=== PATIENT | male | born 1990 | race African-American/Black ===

== ENCOUNTER 2017-05-03 05:02 | Emergency (ER) | payer BC ==
[2017-05-03] MEDS ORDERED: BUPIVACAINE HCL 0.75% INJ/PF (7.5 MG/1 ML) 10 ML SDV INJ ONE (05:38)
[2017-05-03] MEDS ORDERED: PENICILLIN V POTASSIUM 500 MG TABLET PO ONE (05:38)
[2017-05-03] MEDS ORDERED: LIDOCAINE 1% INJ (10 MG/ML) 10 ML MDV INJ ONE ×2 (05:38→05:47)
--- NOTE | 2017-05-03 05:39 | ER Document Report ---
HPI - HPI Patient complains to provider of: right jaw pain, dental pain Pain Level: 5 Context: Patient is a 27-year-old male comes emergency department for chief complaint of dental pain. He states that he has had pain intermittently for over a week, states it became much worse today and now he cannot stand it. He states he has been applying topical lidocaine that he was given 1 week ago here. He is not taking any antibiotics. He denies sore throat, fever, neck pain. Past Medical History - General Information source: Patient - Social History Smoking Status: Current Every Day Smoker Drug Abuse: None Lives with: Family Family History: None Patient has suicidal ideation: No Patient has homicidal ideation: No - Medical History Medical History: Negative Renal/ Medical History: Denies: Hx Peritoneal Dialysis Surgical Hx: Negative - Immunizations Immunizations up to date: Yes Hx Diphtheria, Pertussis, Tetanus Vaccination: Yes Vertical Provider Document - CONSTITUTIONAL General Appearance: Mild Distress - Patient does appear to be in some pain, holding his right hand to his right jaw, Thin - INFECTION CONTROL TRAVEL OUTSIDE OF THE [place] IN LAST 30 DAYS: No - HEENT HEENT: Atraumatic, Normocephalic Mouth Diagram: 1 - Dental caries with no surrounding erythema or swelling 2 - Dental caries with no surrounding erythema or swelling - NECK Neck: Normal Inspection - RESPIRATORY Respiratory: Breath Sounds Normal, No Respiratory Distress O2 Sat by Pulse Oximetry: 99 - CARDIOVASCULAR Cardiovascular: Regular Rate, Regular Rhythm - GI/ABDOMEN Gastrointestinal: Abdomen Soft, Abdomen Non-Tender - BACK Back: Normal Inspection - MUSCULOSKELETAL/EXTREMETIES Musculoskeletal/Extremeties: MAEW, FROM, Non-Tender - NEURO Level of Consciousness: Awake, Alert, Appropriate - DERM Integumentary: Warm, Dry, No Rash Course - Re-evaluation Re-evalutation: Patient with examination consistent with dental caries suggesting dental infection. No abscess evidence. No lymphadenopathy, no swelling or tenderness indicating Roger's angina. Patient never took his antibiotics last time. Discussed dental block with patient, this was performed, patient had excellent anesthesia of the lower jaw but he also has some pain in separate teeth on the right upper jaw from dental caries as well. Discussed necessity of following up , patient states he will, discussed return precautions, patient states understanding and agreement. - Vital Signs Vital signs: Temp Pulse Resp BP Pulse Ox 97.5 F 77 18 110/59 L 99 05/03/17 05:07 05/03/17 05:07 05/03/17 05:07 05/03/17 05:07 05/03/17 05:07 Discharge - Discharge Clinical Impression: Pain, dental Condition: Stable Disposition: HOME, SELF-CARE Additional Instructions: Exam indicates dental infection, please take the penicillin antibiotics as prescribed to completion. Follow-up closely with the dentist to prevent this from happening again. Return if he develop any concerning or worsening symptoms including swelling of the face. Prescriptions: Penicillin V Potassium [Penicillin Vk 500 mg Tablet] 500 mg PO BID #20 tablet Referrals: [facility] [Provider Group] - Follow up tomorrow
[2017-05-03] MEDS ORDERED: LIDOCAINE 1% INJ-PF (10 MG/ML) 30 ML SDV ONE (05:45)
[2017-05-03] MEDS ORDERED: HYDROCODONE/ACETAMINOPHEN 5-325 MG (6 TAB/ER DISP) PO PRN (06:11)
[2017-05-03 06:50] VITALS: BP 135/76
== END 2017-05-03 06:46 | disposition home or self-care (01) ==
LOC: ER 05:02
PROC: 3E0T3BZ Introduction of Anesthetic Agent into Peripheral Nerves and Plexi, Percutaneous Approach (ICD-10-PCS; principal; 2017-05-03)
DX: K08.9 Disorder of teeth and supporting structures, unspecified (principal); R68.84 Jaw pain; F17.200 Nicotine dependence, unspecified, uncomplicated
CPT/HCPCS: 99282; 64400; J3490

== ENCOUNTER 2017-06-06 13:43 | Emergency (ER) | payer BC ==
--- NOTE | 2017-06-06 14:20 | ER Document Report ---
ED Eye Complaint - General Chief Complaint: Drainage from Eye Stated Complaint: EYE PAIN Time Seen by Provider: 06/06/17 14:07 Mode of Arrival: Ambulatory Information source: Patient Notes: Patient is a 27-year-old black male comes emergency room complaining of right eye blurriness. Patient states this started yesterday. He denies any known trauma. He works as a cook at [employer]. Woke up this morning with the eye crusted over and draining. Also feels like there is a foreign body in the eye is itchy and uncomfortable and painful. Denies any other medical problems TRAVEL OUTSIDE OF THE [place] IN LAST 30 DAYS: No - HPI Patient complains to provider of: Blurry eye right side Onset: Yesterday Eye location: Right Injury: No Occurred at: Other - Unknown Quality of pain: Achy, Other - Itchy Severity: Mild Pain Level: 2 Exposure: No: Alkaline chemical, Acidic chemical, Unknown chemical, Direct trauma, Projectile, Broken glass, Conjunctivitis, Welding arc, Tanning carroll, Other Safety glasses worn: No Contact lenses worn: No Associated symptoms: Burning, Itching, Pain, Redness, Eyelid swelling - Related Data Allergies/Adverse Reactions: No Known Allergies Allergy (Verified 06/06/17 13:45) Past Medical History - General Information source: Patient - Social History Smoking Status: Current Every Day Smoker Cigarette use (# per day): No - 1. Guard a Chew tobacco use (# tins/day): No Smoking Education Provided: Yes Frequency of alcohol use: Rare Drug Abuse: None Occupation: Cook Lives with: Family Family History: None, Reviewed & Not Pertinent Renal/ Medical History: Denies: Hx Peritoneal Dialysis - Immunizations Immunizations up to date: Yes Hx Diphtheria, Pertussis, Tetanus Vaccination: Yes Review of Systems - Review of Systems Constitutional: No symptoms reported EENT: See HPI, Eye pain, Eye discharge Cardiovascular: No symptoms reported Respiratory: No symptoms reported Gastrointestinal: No symptoms reported Genitourinary: No symptoms reported Male Genitourinary: No symptoms reported Musculoskeletal: No symptoms reported Skin: No symptoms reported Hematologic/Lymphatic: No symptoms reported Neurological/Psychological: No symptoms reported -: Yes All other systems reviewed and negative Physical Exam - Vital signs Vitals: Temp Pulse Resp BP Pulse Ox 97.8 F 62 14 128/81 H 100 06/06/17 13:48 06/06/17 13:48 06/06/17 13:48 06/06/17 13:48 06/06/17 13:48 Interpretation: Normal - General General appearance: Alert, Other - Appears uncomfortable In distress: Mild - HEENT Head: Normocephalic Eyes: Pale conjunctiva Conjunctiva: Injected Cornea: Normal Extraocular movements intact: Yes Eyelashes: Normal, Other - Further inspection of patient's right eye with the lower lid pulled down there is a noticeable stye or meobian enlargement which appears very erythematous angry red. Pupils: PERRL Visual acuity- Right eye: 20/40 Visual acuity- Left eye: 20/20 Visual acuity- Both eyes: 20/20 Lids everted for exam: right: Stye Anterior chamber: Normal Ears: Normal Tympanic membrane: Normal Mucous membranes: Moist Pharynx: Normal Neck: Normal - Respiratory Respiratory status: No respiratory distress Chest status: Nontender Breath sounds: Normal Chest palpation: Normal - Cardiovascular Rhythm: Regular Heart sounds: Normal auscultation Murmur: No - Neurological Neuro grossly intact: Yes Cognition: Normal Orientation: AAOx4 Andie Coma Scale Eye Opening: Spontaneous Andie Coma Scale Verbal: Oriented [place] Coma Scale Motor: Obeys Commands Andie Coma Scale Total: 15 Speech: Normal Course - Vital Signs Vital signs: Temp Pulse Resp BP Pulse Ox 97.8 F 62 14 128/81 H 100 06/06/17 13:48 06/06/17 13:48 06/06/17 13:48 06/06/17 13:48 06/06/17 13:48 - Transfer of Care Notes: 06/06/17 14:48 At this time it was not necessary to do a fluorescein stain on patient because of his discomfort is a stye in the lower lid. He is somewhat injected from rubbing the eye. His visual acuity is just a bit off but he has never had his eyes checked. Given the low incidence of any probable foreign bodies which she did not remember an incidence of we will go ahead and treat him with antibiotic drops and have him follow-up with ophthalmology. Discharge - Discharge Clinical Impression: Stye Qualifiers: Laterality: right Eyelid: lower Qualified Code(s): H00.012 - Hordeolum externum right lower eyelid Condition: Good Disposition: HOME, SELF-CARE Instructions: Eyedrop Use ([facility]), Conjunctivitis ([facility]) Additional Instructions: You have a stye in your right eye lower lid. Is very erythematous and appears to be somewhat larger than usual. We are placing you on antibiotic drops that has a steroid-based to it only use these no more than 7 days 1 drop every 4 hours. Also use warm moist compresses a washrag as warm placed across the eye several times a day. I am giving you the name of the electrical equipment assembler supervisor irrigation today if it continues to bother her after 24 hours highly recommend contacting the electrical equipment assembler for appointment. Should you have any concerns or problems or increasing pain or discomfort return to ER for recheck. Prescriptions: Tobramycin Sulf/Dexamethasone [Tobradex Eye Drops] 5 ml OP Q4 #1 drops.susp Forms: Return to Work Referrals: AMELIA ANTONIO, DO [ACTIVE STAFF] - Follow up as needed
[2017-06-06 15:18] VITALS: BP 121/72
== END 2017-06-06 15:14 | disposition home or self-care (01) ==
LOC: ER 13:43
DX: H00.012 Hordeolum externum right lower eyelid (principal); F17.200 Nicotine dependence, unspecified, uncomplicated; Z71.6 Tobacco abuse counseling
CPT/HCPCS: 99282

== ENCOUNTER 2017-12-13 16:42 | Emergency (ER) | payer SELFPAY ==
--- NOTE | 2017-12-13 16:52 | ER Document Report ---
HPI - HPI Patient complains to provider of: Wasp sting left hand Onset: This morning Pain Level: 3 Context: 27-year-old male was stung on his left hand by a wasp this morning. He worked all day. 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 It itches. Associated Symptoms: None Exacerbated by: Denies Relieved by: Denies Similar symptoms previously: No Recently seen / treated by doctor: No - ROS ROS below otherwise negative: Yes Systems Reviewed and Negative: Yes All other systems reviewed and negative - REPRODUCTIVE Reproductive: DENIES: : Past Medical History - General Information source: Patient - Social History Smoking Status: Unknown if Ever Smoked Frequency of alcohol use: None Drug Abuse: None Occupation: service agent Lives with: Family Family History: None, Reviewed & Not Pertinent - Medical History Medical History: Negative Renal/ Medical History: Denies: Hx Peritoneal Dialysis Surgical Hx: Negative - Immunizations Immunizations up to date: Yes Hx Diphtheria, Pertussis, Tetanus Vaccination: Yes Vertical Provider Document - CONSTITUTIONAL Agree With Documented VS: Yes Exam Limitations: No Limitations - INFECTION CONTROL TRAVEL OUTSIDE OF THE [place] IN LAST 30 DAYS: No - HEENT HEENT: Normocephalic - NECK Neck: Supple - RESPIRATORY Respiratory: Breath Sounds Normal, No Respiratory Distress - CARDIOVASCULAR Cardiovascular: Regular Rate, Regular Rhythm - MUSCULOSKELETAL/EXTREMETIES Musculoskeletal/Extremeties: MAEW, FROM, Edema - Edematous pink dorsal left hand not hot, no stinger in the bite site. negative: Tender - NEURO Level of Consciousness: Awake Motor/Sensory: No Motor Deficit, No Sensory Deficit Discharge - Discharge Clinical Impression: Swollen wasp sting left hand Condition: Good Disposition: HOME, SELF-CARE Instructions: Acetaminophen, Use of Diphenhydramine, Elevate the Injury ([facility]), Ibuprofen (General) ([facility]), Swollen Insect Bite or Sting ([facility]) Additional Instructions: Elevate above your heart to reduce swelling Benadryl 25-50 mg every 4-6 hours for the itching Tylenol Motrin Return to the emergency room any concerns Prescriptions: Ibuprofen [Motrin 800 mg Tablet] 800 mg PO Q8HP PRN #30 tablet PRN Reason: Forms: Return to Work
[2017-12-13 16:56] VITALS: BP 124/78
[2017-12-13] MEDS ORDERED: IBUPROFEN 800 MG TABLET PO ONE (17:16)
[2017-12-13] MEDS ORDERED: ACETAMINOPHEN 325 MG TABLET PO ONE (17:16)
== END 2017-12-13 17:25 | disposition home or self-care (01) ==
LOC: ER 16:42
DX: T63.461A Toxic effect of venom of wasps, accidental (unintentional), initial encounter (principal); M79.89 Other specified soft tissue disorders
CPT/HCPCS: 99282

== ENCOUNTER 2019-12-03 11:23 | Emergency (ER) | payer BC ==
[2019-12-03] MEDS ORDERED: DICYCLOMINE HCL 20 MG TABLET PO ONE (11:44)
[2019-12-03] MEDS ORDERED: NORMAL SALINE 1000 ML 1,000 ML IV ONE (11:44)
--- NOTE | 2019-12-03 11:46 | ER Document Report ---
ED Medical Screen (RME) - General Chief Complaint: Abdominal Pain Stated Complaint: ABDOMINAL PAIN Time Seen by Provider: 12/03/19 11:40 Notes: Patient is a 29-year-old male who presents to the emergency department with a chief complaint of abdominal cramping. Patient states that for the past 4 days he has had his symptoms. States the cramping is in his mid upper abdomen. Patient states that he drinks call every once in a while. Patient admits to marijuana use. Denies any abdominal surgeries. Exam: Soft, moderately tender mid upper abdomen. Exam limited due to patient in sitting position. I have greeted and performed a rapid initial assessment of this patient. A comprehensive ED assessment and evaluation of the patient, analysis of test results and completion of medical decision making process will be conducted by an additional ED providers. TRAVEL OUTSIDE OF THE [place] IN LAST 30 DAYS: No - Related Data Allergies/Adverse Reactions: No Known Allergies Allergy (Verified 12/03/19 11:40) Past Medical History Renal/ Medical History: Denies: Hx Peritoneal Dialysis - Immunizations Immunizations up to date: Yes Hx Diphtheria, Pertussis, Tetanus Vaccination: Yes Physical Exam - Vital signs Vitals: Temp Pulse Resp BP Pulse Ox 98.6 F 65 18 125/59 L 98 12/03/19 11:29 12/03/19 11:29 12/03/19 11:29 12/03/19 11:29 12/03/19 11:29 Course - Vital Signs Vital signs: Temp Pulse Resp BP Pulse Ox 98.6 F 65 18 125/59 L 98 12/03/19 11:29 12/03/19 11:29 12/03/19 11:29 12/03/19 11:29 12/03/19 11:29
[2019-12-03 12:03] LABS: ABSOLUTE EOSINOPHILS # (AUTO) 0.3 10^3/uL (0.0-0.6); ABSOLUTE LYMPHOCYTES (AUTO) 2.1 10^3/uL (0.5-4.7); ABSOLUTE MONOCYTES (AUTO) 0.6 10^3/uL (0.1-1.4); ABSOLUTE NEUT (AUTO) 3.7 10^3/uL (1.7-8.2); BASOPHILS % (AUTO) 0.7 % (0-2); EOSINOPHILS % (AUTO) 3.9 % (0-6); HEMATOCRIT 42.9 % (37.9-51.0); LYMPHOCYTES % (AUTO) 31.7 % (13-45); MEAN CORPUSCULAR HEMOGLOBIN 32.6 pg (27.0-33.4); MEAN CORPUSCULAR VOLUME 93 fl (80-97); MONOCYTES % (AUTO) 8.5 % (3-13); PLATELET COUNT 178 10^3/uL (150-450); RED BLOOD COUNT 4.61 10^6/uL (4.35-5.55); RED CELL DISTRIBUTION WIDTH 13.3 % (11.5-14.0); SEGMENTED NEUTROPHILS % (AUTO) 55.2 % (42-78); TOTAL CELLS COUNTED % (AUTO) 100 %; WHITE BLOOD COUNT 6.7 10^3/uL (4.0-10.5)
[2019-12-03 12:17] LABS: APPEARANCE,URINE CLEAR; BILIRUBIN,URINE NEGATIVE (NEGATIVE); COLOR,URINE YELLOW; GLUCOSE, URINE NEGATIVE (NEGATIVE); KETONES,URINE NEGATIVE (NEGATIVE); LEUKOCYTE ESTERASE,URINE NEGATIVE (NEGATIVE); NITRITE,URINE NEGATIVE (NEGATIVE); PROTEIN,URINE NEGATIVE (NEGATIVE); URINE SPECIFIC GRAVITY 1.021
[2019-12-03 12:28] LABS: ALBUMIN 4.1 g/dL (3.5-5.0); ALKALINE PHOSPHATASE 59 U/L (38-126); ASPARTATE AMINO TRANSFERASE 15 U/L (17-59); BILIRUBIN,TOTAL 0.4 mg/dL (0.2-1.3); BLOOD UREA NITROGEN 13 mg/dL (7-20); CALCIUM 9.4 mg/dL (8.4-10.2); GLUCOSE 95 mg/dL (75-110); POTASSIUM 4.2 mmol/L (3.6-5.0); TOTAL PROTEIN 6.9 g/dL (6.3-8.2)
[2019-12-03 12:34] LABS: CARBON DIOXIDE 30 mmol/L (22-30); CHLORIDE 105 mmol/L (98-107)
[2019-12-03 12:35] LABS: ANION GAP 3 (5-19)
[2019-12-03] MEDS ORDERED: DICYCLOMINE HCL 20 MG TABLET ONE (13:00)
--- NOTE | 2019-12-03 14:13 | ER Document Report ---
ED General - General Chief Complaint: Abdominal Pain Stated Complaint: ABDOMINAL PAIN Time Seen by Provider: 12/03/19 11:40 Primary Care Provider: AZAR FARRAR MD [ACTIVE STAFF] - Follow up as needed ANA MAURO MD [ACTIVE STAFF] - Follow up as needed JOSE JUAN FLORES MD [ACTIVE STAFF] - Follow up as needed Mode of Arrival: Ambulatory Information source: Patient TRAVEL OUTSIDE OF THE [place] IN LAST 30 DAYS: No - HPI Onset: Other - over the last 4 days off and one Onset/Duration: Gradual Quality of pain: Cramping, Sharp Severity: Moderate Pain Level: 4 Associated symptoms: None Exacerbated by: Denies Relieved by: Denies Similar symptoms previously: No Recently seen / treated by doctor: No Notes: 29 year old male with no significant PMH here in the ER for diffuse abdominal pains off and on for the last 4 days. The patient says he woke up with the pains and initially he could tolerate them but he had to leave work today due to the pain. The patient denies nausea, vomiting, diarrhea, constipation, urinary symptoms, sick contacts, recent travel. The patient has never had abdominal pain like this before. - Related Data Allergies/Adverse Reactions: No Known Allergies Allergy (Verified 12/03/19 11:40) Past Medical History - General Information source: Patient - Social History Smoking Status: Current Every Day Smoker Chew tobacco use (# tins/day): No Frequency of alcohol use: Occasional Drug Abuse: Marijuana Family History: None, Reviewed & Not Pertinent Patient has homicidal ideation: No Renal/ Medical History: Denies: Hx Peritoneal Dialysis - Immunizations Immunizations up to date: Yes Hx Diphtheria, Pertussis, Tetanus Vaccination: Yes Review of Systems - Review of Systems Constitutional: No symptoms reported EENT: No symptoms reported Cardiovascular: No symptoms reported Respiratory: No symptoms reported Gastrointestinal: Abdominal pain Genitourinary: No symptoms reported Male Genitourinary: No symptoms reported Musculoskeletal: No symptoms reported Skin: No symptoms reported Hematologic/Lymphatic: No symptoms reported Neurological/Psychological: No symptoms reported -: Yes All other systems reviewed and negative Physical Exam - Vital signs Vitals: Temp Pulse Resp BP Pulse Ox 98.6 F 65 18 125/59 L 98 12/03/19 11:29 12/03/19 11:29 12/03/19 11:29 12/03/19 11:29 12/03/19 11:29 - Notes Notes: GENERAL: Well-appearing, well-nourished and in no acute distress. HEAD: Atraumatic, normocephalic. EYES: Pupils equal round and reactive to light, extraocular movements intact, sclera anicteric, conjunctiva are normal. ENT: External ears normal, nares patent, oropharynx clear without exudates. Moist mucous membranes. NECK: Normal range of motion, supple without lymphadenopathy or JVD. LUNGS: Breath sounds clear to auscultation bilaterally and equal. No wheezes rales or rhonchi. HEART: Regular rate and rhythm without murmurs, rubs or gallops. ABDOMEN: Soft, moderate diffuse tenderness, normoactive bowel sounds. No guarding, no rebound. No masses appreciated. EXTREMITIES: Normal range of motion, no pitting or edema. No clubbing or cyanosis. NEUROLOGICAL: Cranial nerves II through XII grossly intact. Normal speech, normal gait. PSYCH: Normal mood, normal affect. SKIN: Warm, Dry, normal turgor, no rashes or lesions noted. Course - Re-evaluation Re-evalutation: 12/03/19 16:11 The patient is here in the ER for 4 days of abdominal pains/cramps. The patient has unremarkable lab work, an unremarkable UA, and an unremarkable CT abd/pelvis. The patient felt better afer treatment in the ER with Bentyl, Toradol, Fluids. Patient told he may have abdominal pain from a viral illness or other cause. Patient told to eat a bland diet and he was prescribed Reglan PRN. Patient told to follow up with a PCP and GI Doctor if symptoms persist for further work up. - Vital Signs Vital signs: Temp Pulse Resp BP Pulse Ox 98.6 F 65 18 125/59 L 98 12/03/19 11:41 12/03/19 11:29 12/03/19 11:29 12/03/19 11:29 12/03/19 11:29 - Laboratory Result Diagrams: 12/03/19 11:55 12/03/19 11:55 Laboratory results interpreted by me: 12/03/19 12/03/19 11:55 11:55 Anion Gap 3 L AST 15 L Urine Urobilinogen 2.0 H - Diagnostic Test Radiology reviewed: Image reviewed, Reports reviewed Discharge - Discharge Clinical Impression: Abdominal pain Qualifiers: Abdominal location: generalized Qualified Code(s): R10.84 - Generalized abdominal pain Condition: Stable Disposition: HOME, SELF-CARE Instructions: Abdominal Pain ([facility]) Additional Instructions: Use Reglan for nausea/GI upset along wiht over the counter Tylenol and Motrin. Eat a bland diet until your abdominal pains pass. If you continue to have abdominal pains, you should follow up with a primary care doctor (several are listed) or a GI Doctor (Dr. Farrar). Prescriptions: Metoclopramide HCl [Reglan 10 mg Tablet] 10 mg PO Q8H PRN #10 tablet PRN Reason: Referrals: ANA MAURO MD [ACTIVE STAFF] - Follow up as needed JOSE JUAN FLORES MD [ACTIVE STAFF] - Follow up as needed AZAR FARRAR MD [ACTIVE STAFF] - Follow up as needed
[2019-12-03] MEDS ORDERED: KETOROLAC TROMETHAMINE INJ/PF 30 MG/1 ML SDV IV ONE (14:42)
--- NOTE | 2019-12-03 15:36 | RADIOLOGY REPORT (SQ) ---
EXAM DESCRIPTION: CT ABD/PELVIS WITH IV ONLY IMAGES COMPLETED DATE/TIME: 12/03/2019 2:55 pm REASON FOR STUDY: eval for cause of abdominal pain COMPARISON: None. TECHNIQUE: CT scan of the abdomen and pelvis performed using helical scanning technique with dynamic intravenous contrast injection. No oral contrast. Images reviewed with lung, soft tissue, and bone windows. Reconstructed coronal and sagittal MPR images reviewed. Delayed images for evaluation of the urinary system also acquired. All images stored on PACS. All CT scanners at this facility use dose modulation, iterative reconstruction, and/or weight based d osing when appropriate to reduce radiation dose to as low as reasonably achievable (ALARA). [facility]: Dose Right [facility]: CareDose [facility]: Dose Right [facility]: Teradose 4D [facility]: Quora CONTRAST TYPE AND DOSE: 78 mL Omnipaque 350- low osmolar. RENAL FUNCTION: None required. The patient is less than 50 years old. RADIATION DOSE: CT Rad equipment meets quality standard of care and radiation dose reduction techniq ues were employed. CTDIvol: 4.9 - 5.6 mGy. DLP: 564 mGy-cm.. LIMITATIONS: No oral contrast FINDINGS: LOWER CHEST: No significant findings. No nodules or infiltrates. LIVER: Normal size. No masses. No dilated ducts. SPLEEN: Normal size. No focal lesions. PANCREAS: No masses. No significant calcifications. No adjacent inflammation or peripancreatic fluid collections. Pancreatic duct not dilated. GALLBLADDER: No identified stones by CT criteria. No inflammatory changes to suggest cholecystitis. ADRENAL GLANDS: No significant masses or asymmetry. RIGHT KIDNEY AND URETER: No solid masses. No significant calcifications. No hydronephrosis or hyd roureter. LEFT KIDNEY AND URETER: No solid masses. No significant calcifications. No hydronephrosis or hydr oureter. AORTA AND VESSELS: No aneurysm. No dissection. Renal arteries, SMA, celiac without stenosis. RETROPERITONEUM: No retroperitoneal adenopathy, hemorrhage or masses. BOWEL AND PERITONEAL CAVITY: No masses or inflammatory changes. No free fluid or peritoneal masses. APPENDIX: Normal. PELVIS: No mass. Small amount of cul-de-sac free fluid. Normal bladder. ABDOMINAL WALL: No masses. No hernias. BONES: No significant or acute findings. OTHER: Findings called to Dr. Hernandez in the emergency room 1530 hours 12/03/2019. IMPRESSION: NO SIGNIFICANT OR ACUTE FINDING IN THE ABDOMEN OR PELVIS ON CT SCAN WITH IV CONTRAST. TECHNICAL DOCUMENTATION: JOB ID: [id number] Quality ID # [id number]: Final reports with documentation of one or more dose reduction techniques (e.g., Au tomated exposure control, adjustment of the mA and/or kV according to patient size, use of iterative reconstruction technique) 2010 [employer]- All Rights Reserved Reading location - IP/workstation name: [facility]
[2019-12-03 16:17] VITALS: BP 102/64
== END 2019-12-03 16:17 | disposition home or self-care (01) ==
LOC: ER 11:23
DX: R10.84 Generalized abdominal pain (principal); F17.200 Nicotine dependence, unspecified, uncomplicated
CPT/HCPCS: 99284; 96361; 96374; 36415; 83690; 85025; 80053; 81001; 74177; J3490; J1885; J7030